=== PATIENT | male | born 1960 | race African-American/Black ===

== ENCOUNTER 2018-03-11 21:36 | Emergency (ER) | payer MEDICAID ==
[~2018-03-11] VITALS: Ht 190.5 cm; Wt 81.0 kg
[~2018-03-11 21:36] MED LIST: NO HOME MEDICATIONS
[2018-03-12] MEDS ORDERED: IBUPROFEN 600MG TABLET PO ONE (02:30)
[2018-03-12 06:19] VITALS: BP 129/83
== END 2018-03-12 06:20 | disposition home or self-care (01) ==
LOC: ER 21:57
DX: S80.11XA Contusion of right lower leg, initial encounter (principal); I10 Essential (primary) hypertension; W20.8XXA Other cause of strike by thrown, projected or falling object, initial encounter; Y93.02 Activity, running; Y92.89 Other specified places as the place of occurrence of the external cause; Y99.8 Other external cause status
CPT/HCPCS: 73590; 93971; 99284; 99285

== ENCOUNTER 2019-07-16 15:10 | Emergency (ER) | payer MEDICAID ==
[~2019-07-16] VITALS: Ht 190.5 cm; Wt 90.0 kg
[2019-07-16 15:12] VITALS: BP 150/91
== END 2019-07-16 18:00 | disposition home or self-care (01) ==
LOC: ER 15:10
DX: D22.4 Melanocytic nevi of scalp and neck (principal); L98.9 Disorder of the skin and subcutaneous tissue, unspecified; I10 Essential (primary) hypertension
CPT/HCPCS: 99281

== ENCOUNTER 2020-02-03 08:33 | Emergency (ER) | payer MEDICAID ==
[~2020-02-03] VITALS: Ht 190.5 cm; Wt 87.0 kg
[2020-02-03 08:35] VITALS: BP 165/83
[2020-02-03] MEDS ORDERED: KETOROLAC 60MG/2ML VIAL IM ONE (09:00)
== END 2020-02-03 09:36 | disposition home or self-care (01) ==
LOC: ER 08:43
DX: S39.012A Strain of muscle, fascia and tendon of lower back, initial encounter (principal); X58.XXXA Exposure to other specified factors, initial encounter; Y93.89 Activity, other specified; Y92.89 Other specified places as the place of occurrence of the external cause; Y99.8 Other external cause status
CPT/HCPCS: 96372; 99283; J1885

== ENCOUNTER 2022-04-26 12:19 | Emergency (ER) | payer MEDICAID ==
[~2022-04-26] VITALS: Ht 177.8 cm; Wt 91.0 kg
[2022-04-26 12:47] VITALS: BP 129/71
== END 2022-04-26 16:40 | disposition home or self-care (01) ==
LOC: ER 12:19
DX: B35.1 Tinea unguium (principal); I10 Essential (primary) hypertension
CPT/HCPCS: 99281

== ENCOUNTER 2023-05-17 16:27 | Emergency (ER) | payer MEDICAID ==
[~2023-05-17] VITALS: Ht 190.5 cm; Wt 92.0 kg
[2023-05-17 16:41] VITALS: BP 164/77; RESP 18; TEMP 98.6; O2SAT 99
[2023-05-17 16:44] VITALS: PULSE 117
== END 2023-05-17 21:08 | disposition left against medical advice (07) ==
LOC: ER 16:27
DX: H61.23 Impacted cerumen, bilateral (principal); Z53.21 Procedure and treatment not carried out due to patient leaving prior to being seen by health care provider
CPT/HCPCS: 99282

== ENCOUNTER 2023-05-19 16:48 | Emergency (ER) | payer MEDICAID ==
[~2023-05-19] VITALS: Ht 190.5 cm; Wt 93.0 kg
[2023-05-19 16:53] VITALS: O2SAT 100
[2023-05-19] MEDS ORDERED: CARB-274 EACH EAR (17:57)
[2023-05-19 18:41] VITALS: BP 155/82; PULSE 68; RESP 18; TEMP 98.7
== END 2023-05-19 18:42 | disposition home or self-care (01) ==
LOC: ER 16:48
DX: H61.23 Impacted cerumen, bilateral (principal); I10 Essential (primary) hypertension
CPT/HCPCS: 99282

== ENCOUNTER 2023-10-08 10:57 | Emergency (ER) | payer MEDICAID ==
[~2023-10-08] VITALS: Ht 190.5 cm; Wt 81.6 kg
[~2023-10-08 10:57] MED LIST changes: +CARB-274 EACH EAR
[2023-10-08 11:17] VITALS: TEMP 98.2; O2SAT 98
[2023-10-08] MEDS ORDERED: ACETAMINOPHEN WITH CODEINE 300/30MG TABLET PO STA (13:53)
[2023-10-08] MEDS ORDERED: KETOROLAC 30MG/ML VIAL IM STA (13:53)
[2023-10-08] MEDS ORDERED: GABA-532 PO (16:22)
[2023-10-08] MEDS ORDERED: NAPR-681 PO (16:22)
[2023-10-08] MEDS ORDERED: ACETAMINOPHEN WITH CODEINE 300/30MG TABLET PO NR (16:45)
[2023-10-08] MEDS: KETOROLAC 30MG/ML VIAL IM NR (16:53)
[2023-10-08 16:58] VITALS: BP 189/82; PULSE 62; RESP 16
== END 2023-10-08 17:06 | disposition home or self-care (01) ==
LOC: ER 12:16
DX: M54.41 Lumbago with sciatica, right side (principal); M47.816 Spondylosis without myelopathy or radiculopathy, lumbar region; I10 Essential (primary) hypertension
CPT/HCPCS: 72100; 96372; 99283; J1885

== ENCOUNTER 2023-11-28 11:01 | Emergency (ER) | payer MEDICAID ==
[~2023-11-28] VITALS: Ht 190.5 cm; Wt 92.0 kg
[~2023-11-28 11:01] MED LIST changes: +GABA-532 PO; +NAPR-681 PO
[2023-11-28 11:23] VITALS: BP 172/89; PULSE 85; RESP 16; TEMP 98.4; O2SAT 99
[2023-11-28] MEDS ORDERED: CYCL10TA21 MT (11:54)
[2023-11-28] MEDS ORDERED: ACET-2708 MT (11:55)
[2023-11-28] MEDS ORDERED: [UNRECOGNIZED DRUG - CODE] TP (11:59)
== END 2023-11-28 13:34 | disposition home or self-care (01) ==
LOC: ER 11:01
DX: M79.18 Myalgia, other site (principal); I10 Essential (primary) hypertension
CPT/HCPCS: 99283

== ENCOUNTER 2023-12-10 10:30 | Emergency (ER) | payer MEDICAID ==
[~2023-12-10] VITALS: Ht 182.9 cm; Wt 122.0 kg
[~2023-12-10 10:30] MED LIST changes: +ACET-2708 MT; +CYCL10TA21 MT; +[UNRECOGNIZED DRUG - CODE] TP
[2023-12-10 10:38] VITALS: O2SAT 98
[2023-12-10 11:44] LABS: BASOPHILS % 0.3 % (0.0-2.0); HEMOGLOBIN. 13.7 g/dL (14.0-18.0); LYMPHOCYTES % 18.8 % (20.0-50.0); MEAN CORPUSCULAR HEMOGLOBIN 29.9 pg (28.0-32.0); MEAN CORPUSCULAR HGB CONC 33.4 g/dL (31.0-37.0); MEAN CORPUSCULAR VOLUME 89.3 fL (80.0-94.0); MEAN PLATELET VOLUME 7.7 fl (7.4-10.4); MONOCYTES % 9.1 % (2.0-8.0); NEUTROPHILS % 69.8 % (40.0-76.0); PLATELET 280 x1000/uL (130-400); RED BLOOD CELL COUNT 4.59 mill/uL (4.7-6.1); RED CELL DISTRIBUTION WIDTH 13.6 % (11.6-14.6); WHITE BLOOD COUNT 5.3 x1000/uL (4.5-11.0)
[2023-12-10 12:02] LABS: ALANINE AMINOTRANSFERASE 32 IU/L (10-49); ALBUMIN 4.7 g/dL (3.2-4.8); ASPARTATE AMINOTRANSFERASE 32 IU/L (<34); BILIRUBIN TOTAL 0.6 mg/dL (0.1-1.0); CALCIUM 9.4 mg/dL (8.7-10.4); CARBON DIOXIDE 27 mEq/L (21-32); CHLORIDE 105 mEq/L (98-107); CREATININE 1.1 mg/dL (0.6-1.3); GLUCOSE 100 mg/dL (70-105); POTASSIUM 4.2 mEq/L (3.5-5.1); PROTEIN TOTAL 8.4 g/dL (6.0-8.3); SODIUM 137 mEq/L (136-145); TROPONIN I HIGH SENSITIVITY 8 ng/L (3.0-53); UREA NITROGEN BLOOD 18 mg/dL (9-23)
[2023-12-10] MEDS: ENOXAPARIN 80MG/0.8ML SYR SUBCUT ONE (13:02)
[2023-12-10] MEDS ORDERED: ACETAMINOPHEN 325MG TABLET PO PRN (14:45)
[2023-12-10] MEDS ORDERED: ONDANSETRON HCL 4MG/2ML INJ IV PRN (14:45)
[2023-12-10] MEDS ORDERED: DILTIAZEM HCL 5MG/ML 5ML VIAL IV PRN (14:45)
[2023-12-10] MEDS ORDERED: CLONIDINE 0.1MG TABLET PO PRN (14:45)
[2023-12-10] MEDS ORDERED: DIPHENHYDRAMINE 50MG/ML VIAL IV PRN (14:45)
[2023-12-10] MEDS ORDERED: IPRATROPIUM/ALBUTEROL 0.5-3(2.5)MG/3ML NEB HHN PRN (14:45)
[2023-12-10 16:43] VITALS: BP 158/94; PULSE 68; RESP 16; TEMP 98.2
[2023-12-10] MEDS ORDERED: DILTIAZEM HCL 60MG TABLET PO SCH (18:00)
== END 2023-12-10 16:51 | disposition admitted as inpatient to this hospital (09) ==
LOC: ER 10:30 → EDBEDREQ 12:39 → EDBEDREQTM 12:39 → ER 16:51
DX: I48.91 Unspecified atrial fibrillation (principal); I10 Essential (primary) hypertension; Z79.899 Other long term (current) drug therapy
CPT/HCPCS: 80053; 83880; 85025; 84484; 36415; 71045; 93970; 93005; 96372; 99285; J1650; Z7610

== ENCOUNTER 2025-02-19 07:40 | Emergency (ER) | payer MEDICARE, MEDICAID ==
[~2025-02-19] VITALS: Ht 180.3 cm; Wt 91.0 kg
[~2025-02-19 07:40] MED LIST changes: +GABA-1180 PO; -GABA-532 PO
[2025-02-19 07:50] VITALS: O2SAT 100
[2025-02-19] MEDS: HYDROCODONE/ACETAMINOPHEN 5/325MG TABLET PO ONE (09:07)
[2025-02-19] MEDS: LIDOCAINE 5% PATCH TOP SCH (09:08)
[2025-02-19] MEDS: KETOROLAC 30MG/ML VIAL IM ONE (09:08)
[2025-02-19] MEDS ORDERED: CYCL10TA21 MT (09:47)
[2025-02-19] MEDS ORDERED: LIDO700A30 TP (09:47)
[2025-02-19] MEDS ORDERED: HYDR-4001 MT (09:47)
[2025-02-19] MEDS ORDERED: NAPR-681 PO (09:47)
[2025-02-19] MEDS ORDERED: ACET-2708 MT (09:47)
[2025-02-19 10:00] VITALS: BP 152/87; PULSE 88; RESP 18; TEMP 36.9; O2SAT 100
== END 2025-02-19 10:00 | disposition home or self-care (01) ==
LOC: ER 07:40
DX: S60.417A Abrasion of left little finger, initial encounter (principal); S80.212A Abrasion, left knee, initial encounter; M54.2 Cervicalgia; I10 Essential (primary) hypertension; Z79.899 Other long term (current) drug therapy; W19.XXXA Unspecified fall, initial encounter; Y93.89 Activity, other specified; Y92.89 Other specified places as the place of occurrence of the external cause; Y99.8 Other external cause status
CPT/HCPCS: 99283; 72040; 96372; J1885